=== PATIENT | male | born 1990 | race Caucasian/White ===

== ENCOUNTER 2023-03-19 04:26 | Emergency (ER) | payer MEDICAID ==
[2023-03-19] MEDS ORDERED: Lidocaine 1% 10 ML MDV INJECT ONE (04:35)
[2023-03-19] MEDS ORDERED: Cephalexin 500 MG Cap PO ONE (04:55)
== END 2023-03-19 05:10 | disposition home or self-care (01) ==
LOC: JD.ED 04:26
DX: M70.21 Olecranon bursitis, right elbow (principal); E10.9 Type 1 diabetes mellitus without complications
CPT/HCPCS: 73070; 99283; A9270